=== PATIENT | male | born 1985 | race African-American/Black ===

== ENCOUNTER 2017-04-22 07:56 | Emergency (ER) | END 2017-04-22 12:22 | disposition home or self-care (01) ==

== ENCOUNTER 2017-06-10 22:03 | Emergency (ER) | END 2017-06-10 23:00 | disposition left against medical advice (07) ==

== ENCOUNTER 2018-02-21 19:55 | Emergency (ER) | END 2018-02-21 22:30 | disposition home or self-care (01) ==